=== PATIENT | female | born 1995 | race Caucasian/White ===

== ENCOUNTER 2022-04-17 12:40 | Emergency (ER) | payer MEDICAID ==
[~2022-04-17] VITALS: Ht 152.4 cm; Wt 85.4 kg
[2022-04-17 13:03] VITALS: BP 127/76
--- NOTE | 2022-04-17 13:17 | NUR ---
PT SEEN BY RED IN CHAIR B, THEN PT WILL GO BACK TO LOBBY
[2022-04-17 13:47] LABS: BASOPHILS # (AUTO) 0.1 K/uL (0.00-0.22); BASOPHILS % (AUTO) 1.2 % (0.0-2.0); EOSINOPHILS # (AUTO) 0.2 K/uL (0-0.4); EOSINOPHILS % (AUTO) 2.2 % (0.0-4.0); HEMATOCRIT 39.1 % (36-48); HEMOGLOBIN 13.4 g/dL (12.0-16.0); LYMPHOCYTES # (AUTO) 3.3 K/uL (2.5-16.5); LYMPHOCYTES % (AUTO) 29.5 % (20.5-51.1); MEAN CORPUSCULAR HEMOGLOBIN 29 pg (27-31); MEAN CORPUSCULAR HGB CONC 34 g/dL (33-37); MEAN CORPUSCULAR VOLUME 84.9 fL (80-94); MONOCYTES # (AUTO) 0.7 K/uL (0.8-1.0); MONOCYTES % (AUTO) 6.5 % (1.7-9.3); NEUTROPHILS # (AUTO) 6.8 K/uL (1.8-7.7); NEUTROPHILS % (AUTO) 60.6 % (42.2-75.2); PLATELET COUNT (AUTO) 292 K/uL (140-450); WHITE BLOOD COUNT (AUTO) 11.2 K/uL (4.8-10.8)
[2022-04-17 14:04] LABS: ANION GAP 10.7 (8-16); CARBON DIOXIDE 25.5 mmol/L (21-32); CREATININE 0.7 mg/dL (0.6-1.3); POTASSIUM 4.2 mmol/L (3.5-5.1)
[2022-04-17 14:14] LABS: APPEARANCE,URINE CLEAR (CLEAR); COLOR,URINE YELLOW (YELLOW)
[2022-04-17 14:15] LABS: BILIRUBIN,URINE NEGATIVE (NEGATIVE); BLOOD, URINE NEGATIVE (NEGATIVE); LEUKOCYTE ESTERASE ,URINE NEGATIVE (NEGATIVE); NITRITE, URINE NEGATIVE (NEGATIVE); UGLUCOSE NEGATIVE (NEGATIVE)
--- NOTE | 2022-04-17 14:15 | NUR ---
27YO FEMALE PT C/O CRAMPING 2/10 LOWER ABDOMINAL PAIN XYESTERDAY. PT CURRENTLY 10 WEEKS , G1. LMP 01/20/22, ALYSE 10/26/22. REPORTS INTERMITTENT MILD VAGINAL BLEEDING [id number], NOTED INITIALLY BROWN - NOW PINK. STATES LAST OB VISIT ON 04/11/22 "EVERYTHING NORMAL". DENIES N/V/D, CHEST PAIN, SOB , FEVER OR CHILLS. ABDOMEN FIRM, NON TENDER. PT AAOX4, RESPIRATIONS EVEN AND UNLABORED. ON AGRONOMY ADVISOR. HOB POSITIONED PER COMFORT. HX:DENIES NKA
[2022-04-17 14:19] LABS: RBC,URINE 0-5 /HPF (0-5); WBC,URINE 0-5 /HPF (0-5)
[2022-04-17] MEDS ORDERED: MISOPROSTOL 200 MCG TAB PO ONE (16:20)
[2022-04-17] MEDS ORDERED: IBUP-2213 PO (16:25)
[2022-04-17] MEDS ORDERED: CYT100 PO (16:25)
[2022-04-17 16:50] VITALS: BP 125/68
--- NOTE | 2022-04-17 16:50 | NUR ---
Patient discharged with v/s stable. Written and verbal after care instructions FOR MISCARRIAGE given and explained. Patient alert, oriented and verbalized understanding of instructions. Ambulatory with steady gait. All questions addressed prior to discharge. ID band removed. Patient advised to follow up with PMD. Rx of IBUPROFEN AND MISOPROSTOL given. Opportunity to ask questions provided and answered.
--- NOTE | 2022-04-17 16:51 | NUR ---
Chart checked and completed. The patient's care was reviewed and supervised by Karina Ramires RN.
== END 2022-04-17 16:50 | disposition home or self-care (01) ==
LOC: MED 12:40
DX: O46.91 Antepartum hemorrhage, unspecified, first trimester (principal); Z20.822 Contact with and (suspected) exposure to COVID-19; Z3A.10 10 weeks gestation of pregnancy
CPT/HCPCS: 36415; 76817; 80048; 81001; 84702; 85025; 86900; 86901; 87426; 99285; Q0092